=== PATIENT | female | born 1960 | race Caucasian/White ===

== ENCOUNTER 2023-12-09 06:24 | Day surgery (SDC) | payer OTHER ==
[~2023-12-09] VITALS: Ht 162.6 cm; Wt 78.6 kg
[~2023-12-09 06:24] MED LIST: DOXY100C61 PO; LEVO75 PO
[2023-12-09] MEDS ORDERED: BENZOCAINE 20% 50 MCG/SPRAY 57 GM TP ONE (06:25)
[2023-12-09] MEDS ORDERED: LIDOCAINE 2% 11 ML JELLY TP ONE (06:25)
[2023-12-09] MEDS ORDERED: LIDOCAINE 4% 50 ML SOLUTION TP ONE (06:25)
[2023-12-09] MEDS ORDERED: REGADENOSON 0.4 MG/5 ML PF SYRINGE IVP ONE (06:25)
[2023-12-09] MEDS ORDERED: SODIUM CHLORIDE 0.9% 1,000 ML ONE (06:30)
[2023-12-09] MEDS ORDERED: ALBU18HF12 IH (06:43)
[2023-12-09] MEDS ORDERED: SEMA1PEN3 SQ (06:43)
[2023-12-09] MEDS ORDERED: PRED-729 PO (06:43)
[2023-12-09] MEDS ORDERED: LOSA-381 PO (06:43)
[2023-12-09] MEDS ORDERED: MONT-40 PO (06:43)
[2023-12-09] MEDS ORDERED: ATOR-2 PO (06:43)
[2023-12-09] MEDS ORDERED: METO-391 PO (06:43)
[2023-12-09] MEDS ORDERED: FLUT1BLS15 IH (06:43)
[2023-12-09] MEDS: SODIUM CHLORIDE 0.9% 1,000 ML IV ONE (07:29)
[2023-12-09 07:45] LABS: GLUCOMETER DEV NAME(LOC) SDS.; GLUCOSE,POINT OF CARE 104 MG/DL (70-110)
[2023-12-09] MEDS ORDERED: FentaNYL CITRATE PF 100 MCG/2 ML VIAL ONE (08:45)
[2023-12-09] MEDS ORDERED: MIDAZOLAM HCL 2 MG/2 ML VIAL ONE (08:46)
[2023-12-09 09:25] VITALS: PULSE 61; RESP 18; O2SAT 97
[2023-12-09] MEDS ORDERED: MethylPREDNISolone SOD SUCC 125 MG/2 ML VIAL ONE (09:48)
[2023-12-09] MEDS: MethylPREDNISolone SOD SUCC 125 MG/2 ML VIAL IVP ONE (09:52)
== END 2023-12-09 13:25 | disposition home or self-care (01) ==
LOC: SURGERY 06:24
PROVIDERS: ATTEND Internal Medicine Critical Care Medicine
DX: R05.3 Chronic cough (principal); R06.2 Wheezing; R49.0 Dysphonia; R04.2 Hemoptysis; R91.8 Other nonspecific abnormal finding of lung field; J38.4 Edema of larynx; B37.0 Candidal stomatitis; I25.2 Old myocardial infarction; R94.31 Abnormal electrocardiogram [ECG] [EKG]; I10 Essential (primary) hypertension; E11.9 Type 2 diabetes mellitus without complications; E78.00 Pure hypercholesterolemia, unspecified; J44.9 Chronic obstructive pulmonary disease, unspecified; Z87.891 Personal history of nicotine dependence; Z79.899 Other long term (current) drug therapy; Z88.8 Allergy status to other drugs, medicaments and biological substances
CPT/HCPCS: 31623; 31624; 71045; 82962; 87015; 87070; 87101; 87206; 87220; 88108; 93005; J2250; J2785; J2919; J3010; J7030; Z7610